=== PATIENT | male | born 1985 | race African-American/Black ===

== ENCOUNTER 2019-09-22 21:43 | Emergency (ER) | payer BC ==
[~2019-09-22] VITALS: Ht 175.3 cm; Wt 79.4 kg
[2019-09-22 22:06] VITALS: BP 150/90
[2019-09-22] MEDS ORDERED: Azithromycin 250mg tab ORAL ONE (22:30)
[2019-09-22] MEDS ORDERED: Lidocaine 1% MPF 10mg/ml 5ml INJ ONE (22:30)
[2019-09-22 22:54] VITALS: BP 150/90
--- NOTE | 2019-09-23 00:49 | Emergency Room Report ---
History of Present Illness General Chief Complaint: Male Urogenital Problems Source: Patient Present Illness HPI 34-year-old male presents for evaluation. States that he is noticing some urethral discharge today. White. Denies dysuria. States he has partners that have tested positive for STDs. Unprotected sex. Denies scrotal pain. Denies fevers or chills. No other aggravating relieving factors. Denies any other associated symptoms Allergies: Coded Allergies: No Known Allergies (Unverified , 09/22/19) COVID-19 Screening Contact w/high risk pt: No Experienced COVID-19 symptoms?: No COVID-19 Testing performed BUSINESS ATTORNEY: No Patient History Past Medical History: none Past Surgical History: none Pertinent Family History: none Social History: Denies: smoking, alcohol use, drug use Immunizations: UTD Reviewed Nursing Documentation: PMH: Agreed; PSxH: Agreed Nursing Documentation-PMH Past Medical History: No Stated History Review of Systems All Other Systems: negative except mentioned in HPI Physical Exam Vital Signs Date Time Temp Pulse Resp B/P (MAP) Pulse Ox O2 Delivery O2 Flow Rate FiO2 09/22/19 22:06 97.9 93 16 150/90 (110) 97 Room Air Sp02 EP Interpretation: reviewed, normal General Appearance: no apparent distress, alert, GCS 15, non-toxic Head: normocephalic, atraumatic Eyes: bilateral eye normal inspection, bilateral eye PERRL ENT: hearing grossly normal, normal pharynx, no angioedema, normal voice Neck: full range of motion, supple/symm/no masses Respiratory: chest non-tender, lungs clear, normal breath sounds, speaking full sentences Cardiovascular #1: regular rate, rhythm, no edema Cardiovascular #2: 2+ carotid (R), 2+ carotid (L), 2+ radial (R), 2+ radial (L) , 2+ dorsalis pedis (R), 2+ dorsalis pedis (L) Gastrointestinal: normal bowel sounds, non tender, soft, non-distended, no guarding, no rebound Rectal: deferred Genitourinary: normal inspection, no CVA tenderness Musculoskeletal: back normal, normal range of motion, gait/station normal, non- tender Neurologic: alert, motor strength/tone normal, oriented x3, sensory intact, responsive, speech normal Psychiatric: judgement/insight normal, memory normal, mood/affect normal, no suicidal/homicidal ideation Reflexes: 3+ bicep (R), 3+ bicep (L), 3+ tricep (R), 3+ tricep (L), 3+ knee (R) , 3+ knee (L) Lymphatic: no adenopathy Medical Decision Making Diagnostic Impression: Primary Impression: Urethritis ER Course Hospital Course 34-year-old male presents ED with white urethral discharge. History of unprotected sex Differential diagnoses include: trichimonas, gonorrhea, chlamydia Clinical course Patient placed on stretcher. After initial history physical exam reveals a young male in no acute distress. Physical exam unremarkable. No testicular pain or swelling. No noted urethral discharge We will treat him clinically for gonorrhea/Chlamydia. Given azithromycin/ Rocephin in ED and I discussed findings with patient. Safe for discharge close outpatient follow-up. I will provide referrals to STD clinic Diagnosis - urethritis Stable and discharged home. Instructed to followup with PMD. Return to ED if symptoms recur or worsen Last Vital Signs Date Time Temp Pulse Resp B/P (MAP) Pulse Ox O2 Delivery O2 Flow Rate FiO2 09/22/19 22:54 97.9 16 150/90 97 Room Air 09/22/19 22:06 79 Status: improved Disposition: HOME, SELF-CARE Condition: Stable Referrals: NON PHYSICIAN (PCP) [facility] Patient Instructions: Urethritis, Adult Truman Dennis MD Sep 23, 2019 00:49
== END 2019-09-22 22:54 | disposition home or self-care (01) ==
LOC: EMR 22:27
DX: N34.2 Other urethritis (principal); Z20.2 Contact with and (suspected) exposure to infections with a predominantly sexual mode of transmission
CPT/HCPCS: 96372; 96374; 99284; J0696

== ENCOUNTER 2019-09-30 10:12 | Emergency (ER) | payer OTHER, MEDICAID ==
[~2019-09-30] VITALS: Ht 175.3 cm; Wt 81.6 kg
[2019-09-30] MEDS ORDERED: LORazepam Inj 2mg/ml 1ml IV ONE (10:15)
--- NOTE | 2019-09-30 10:16 | NUR ---
ED Nurse Note: Pt brought in by ambulance came in for medical clearance. Pt is also under police custody. Reports that pt was in the car with the police and pt was sweating profusely and in near syncope state. Also pt possibly over dosed on meth take at 5am this morning. AAO x4, follows command with no respiratory distress. Noted to be sleepy.
--- NOTE | 2019-09-30 10:16 | Emergency Room Report ---
History of Present Illness General Chief Complaint: Medical Clearance Source: Patient Present Illness HPI 34-year-old male brought in as a assisted check by PD. Patient endorses meth use at 5 AM. It is now 5 hours after that. When asked about his meth use, patient states "every day, as much as I can get" . States he "took a lot today" His cousin who is at bedside is laughing and states that his cousin has not slept in the last 4 days because he has been using so much methamphetamines. Pt denies any other illicit drug or over-the- counter ingestions. Patient has no complaints. Denies trauma, fever, chills, headache, CP, SOB, neck pain, abdominal pain, dysuria, hematuria, testicular pain, scrotal pain, cough, nausea, vomiting, diarrhea. The patient's symptoms were gradual onset, severity was moderate, duration since 4 days Quality: Agitated Past medical history: Denies Past surgical history: Denies Smoking: Denies Alcohol use: Occasional Drug use: Daily methamphetamine Review of systems: CONST: No fevers or chills, No night sweats PULMONARY: No productive cough, No shortness of breath CARDIAC: No chest pain, No palpitations GI: No vomiting, No diarrhea , No melena_or_BRBPR : No dysuria, No hematuria, No discharge NEURO: No new_focal_weakness_or_numbness, No confusion, No vision changes 14 point Review of Systems is otherwise negative except per HPI Physical Exam: GENERAL: Awake_alert_ nontoxic, no acute distress Spo2 98% on RA; normal EYES: Extraocular muscles are intact. Conjunctivae clear. Lids without swelling ENT: External nose and ear normal_in_appearance. Oropharynx clear. Head_ atraumatic, Moist_oral_mucosa NECK: No JVD. No meningismus. No thyromegaly. Supple. Trachea midline RESP: Normal respiratory effort. Symmetric rise. No stridor. Clear_to_ auscultation_No_rales_No_wheezes CARDIAC: Regular rate and regular rhytm. No_significant pedal edema. ABDOMEN: Soft. Nondistended. Nontender_No_rebound_or_guarding. MSK: Normal muscle tone, without rigidity. Extremities without asymmetric deformity or swelling. SKIN: Warm and dry. No visible cyanosis or pallor NEUROLOGIC: Alert, oriented x3. Motor_and_sensation_grossly_intact. No truncal ataxia. Gait_normal No ataxia no abnormal cerebellar signs. No nystagmus Psych: Normal mood and affect, normal judgment and insight - COORDINATION OF CARE Case was discussed with: Patient , Patient's Family Any labs and imaging that were ordered were interpreted as part of the medical decision making: Medical Decision Making/Plan: Differential diagnosis includes psychosis, delusions, paranoid schizophrenia, drug abuse, drug intoxication, drug overdose, among others. Patient is well appearing and neuro intact. His cousin who lives with him is at bedside and states he is at his baseline mental status Also states his cousin does meth "every day" and has not slept in 4 days so is sleeping now because its the first time he's laid still in 4 days. The patient denies any suicide attempt, overdose, or ingestion. They exhibit no signs of any toxic syndrome or drug / alcohol withdrawal. Labs were ordered for evaluation, and results are reassuring with no evidence of occult overdose, or severe metabolic derangement. The patient was observed for a period of time in the ED with serial neurologic exams. After serial neurologic exams in the emergency department, the patient remains clinically sober. They have no focal neurologic deficits and were able to ambulate with a steady gait without assistance. The patients presentation seems to be consistent with agitation / psychosis , without any complications such as suicide attempt or overdose I ordered a urinalysis and UDS, however patient states that he wants to leave prior to the evaluation. He is telling me that he took "lots of meth" before coming here but nothing else. His cousin is at bedside and is comfortable watching him after discharge. Also states that patient is at his baseline and just needs to sleep because of all the meth. I counseled patient extensively to stop doing methamphetamines. I performed an ultrasound E fast examination and was negative for free fluid in the abdomen, cardiac tamponade, or pneumothorax. CT head was not found to be indicated secondary to patient being neurologically intact with resolved altered mental status. Patient was site released by PD. Pertinent results reviewed with the patient. I educated the patient on the current treatment plan including the risks, benefits, and alternatives. I also discussed the extent and limitations of the current evaluation. The patient expressed understanding and agreement with plan. I recommended PMD follow-up within 1-2 days. Also advised that the patient return to the Emergency Department as soon as possible if they experience any new, persistent, or worsening symptoms. Allergies: Coded Allergies: No Known Allergies (Unverified , 09/22/19) COVID-19 Screening Contact w/high risk pt: No Experienced COVID-19 symptoms?: No COVID-19 Testing performed INTERIOR SYSTEMS CARPENTER: No Nursing Documentation-PM Past Medical History: No Stated History Physical Exam Vital Signs Date Time Temp Pulse Resp B/P (MAP) Pulse Ox O2 Delivery O2 Flow Rate FiO2 09/30/19 10:06 98.2 75 16 122/75 (91) 100 Room Air Procedures Critical Care Time Critical Care Time Critical Care Statement Organ systems at risk include: Circulatory, tox Critical care performed for 45 minutes. Time is exclusive of separately billable procedures. Time includes: direct patient care, continuous monitoring and multiple patient reassessment, coordination of patient care, review of patient's medical records , medical consultation, family consultation regarding treatment decisions and documentation of patient care. Medical Decision Making Diagnostic Impression: Primary Impression: Medical clearance for incarceration Additional Impression: Methamphetamine abuse EKG Diagnostic Results PA Scribe Text 12-lead EKG (interpreted by me) Time: 1016 Indication: Rhythm analysis Tracing visualized and Interpreted by me. Rhythm: Sinus tachycardia Rate: 104 bpm QTc: 444 Morphology: No_significant_ST_elevations_or_depressions, No STEMI Impression: Sinus tachycardia Reevaluation Time: 14:16 Last Vital Signs Date Time Temp Pulse Resp B/P (MAP) Pulse Ox O2 Delivery O2 Flow Rate FiO2 09/30/19 10:06 98.2 75 16 122/75 (91) 100 Room Air Status: improved Disposition: HOME, SELF-CARE Admit Decision Time: 14:16 Condition: Stable Patient Instructions: Finding Treatment for Addiction, Stimulant Use Disorder- Amphetamines Additional Instructions: Instructions for patient/insulation board back tender: Follow up with your physician in 1 to 2 days. Stop doing methamphetamines. It is bad for your health. Continue oral hydration.. Follow-up with your doctor sooner if your condition requires a more timely clinical reevaluation. Return to the emergency department immediately if you feel that your condition is worsening or if you have any new or concerning symptoms. Review your discharge instructions and take any prescriptions given as instructed. Yanet Pérez D.O. Sep 30, 2019 10:16
[2019-09-30 10:38] VITALS: BP 124/80
[2019-09-30 10:48] LABS: BASOPHILS % (AUTO) 0.9 % (0.0-2.0); EOSINOPHILS % (AUTO) 1.1 % (0.0-3.0); HEMOGLOBIN 15.9 G/DL (14.2-18.0); LYMPHOCYTES % (AUTO) 12.4 % (20.0-45.0); MEAN CORPUSCULAR VOLUME 88 FL (80-99); MONOCYTES % (AUTO) 7.7 % (1.0-10.0); NEUTROPHILS % (AUTO) 77.8 % (45.0-75.0); PLATELET COUNT 209 K/UL (150-450); RED BLOOD COUNT 5.57 M/UL (4.70-6.10); RED CELL DISTRIBUTION WIDTH 12.7 % (11.6-14.8); WHITE BLOOD COUNT 14.7 K/UL (4.8-10.8)
[2019-09-30 10:54] LABS: ANION GAP 8 mmol/L (5-15); BLOOD UREA NITROGEN 13 mg/dL (7-18); CALCIUM 9.2 MG/DL (8.5-10.1); CARBON DIOXIDE 27 MMOL/L (21-32); CHLORIDE 106 MMOL/L (98-107); CREATININE 1.1 MG/DL (0.55-1.30); POTASSIUM 3.8 MMOL/L (3.5-5.1); SODIUM 141 MMOL/L (136-145)
--- NOTE | 2019-09-30 11:03 | NUR ---
ED Nurse Note: [employer] at the bed side.
[2019-09-30 11:06] LABS: ALANINE AMINOTRANSFERASE 28 U/L (12-78); ALBUMIN 4.1 G/DL (3.4-5.0); ALBUMIN/GLOBULIN RATIO 1.1 (1.0-2.7); ALKALINE PHOSPHATASE 63 U/L (46-116); ASPARTATE AMINO TRANSFERASE 26 U/L (15-37); BILIRUBIN,TOTAL 0.4 MG/DL (0.2-1.0); CREATINE KINASE 208 U/L (26-308)
--- NOTE | 2019-09-30 11:25 | NUR ---
ED Nurse Note: Pt unable to provide urine sample at this time. IV fluids running.
--- NOTE | 2019-09-30 12:01 | NUR ---
ED Nurse Note: INFORMED ERMD THAT URINE WAS NOT ABLE TO BE OBTAINED VIA I&O CATH.
[2019-09-30] MEDS ORDERED: cefTRIAXone 1 GM in NS 55 ML IVPB ONE (12:15)
[2019-09-30] MEDS ORDERED: Tamsulosin 0.4mg cap ORAL ONE (12:25)
--- NOTE | 2019-09-30 12:30 | NUR ---
ED Nurse Note: [employer] states that patient is no longer on police custody at this time. ERMD was notified.
[2019-09-30 13:00] VITALS: BP 133/82
[2019-09-30] MEDS ORDERED: Oxybutynin 5mg tab ORAL SCH (14:00)
[2019-09-30 14:40] VITALS: BP 125/70
--- NOTE | 2019-09-30 14:40 | NUR ---
ER DISCHARGE NOTE: Patient is cleared to be discharged per ERMD, pt is aox4, on room air, with stable vital signs. pt was given dc instructions, pt was able to verbalize understanding, pt id band and iv site removed without complications. pt is able to ambulate with steady gait. pt took all belongings and left with his family member.
[2019-09-30] MEDS ORDERED: Tamsulosin 0.4mg cap ORAL SCH (21:00)
== END 2019-09-30 14:40 | disposition home or self-care (01) ==
LOC: EDBD 10:12 → EMR 10:20
DX: F15.10 Other stimulant abuse, uncomplicated (principal); R00.0 Tachycardia, unspecified
CPT/HCPCS: 36415; 51701; 80053; 82550; 84443; 84484; 85025; 93005; 96361; 96365; 96375; 99291; G0480; J0696; J7030; U0002